=== PATIENT | female | born 1930 | race Caucasian/White ===

== ENCOUNTER 2019-02-04 15:21 | Inpatient (IN) | payer OTHER ==
[2019-02-04] VITALS (9 sets, daily range): BP systolic 103–152; BP diastolic 35–56; PULSE 73–83; RESP 14–20; Ht 137.2 cm; Wt 44.2 kg
[~2019-02-04] VITALS: Ht 137.2 cm; Wt 44.2 kg
[~2019-02-04 15:21] MED LIST: ATOR40TA68 PO; CLOP75TA28 GTB; ENOX30DI2 SC; METO-448 GTB; [UNRECOGNIZED DRUG - CODE] PO
[2019-02-04] MEDS ORDERED: NACL 0.9% 3 ML SYG IV SCH (16:30)
[2019-02-04] MEDS ORDERED: morphine 2 MG INJ IV PRN (16:30)
[2019-02-04] MEDS ORDERED: DOCUSATE SODIUM 100 MG CAP PO PRN (16:30)
[2019-02-04] MEDS ORDERED: ONDANSETRON 4 MG INJ IV PRN (16:30)
[2019-02-04] MEDS ORDERED: ACETAMINOPHEN 650 MG SUPP PR PRN (16:30)
[2019-02-04] MEDS ORDERED: BISACODYL (EC) 5 MG TAB PO PRN (16:30)
[2019-02-04] MEDS ORDERED: ACETAMINOPHEN 325 MG TAB PO PRN (16:30)
[2019-02-04] MEDS ORDERED: HYDROCODONE/APAP (5/325) TAB PO PRN (16:30)
[2019-02-04] MEDS ORDERED: DOCUSATE SODIUM 10 MG/ML (10ML CUP) GTB PRN (17:30)
[2019-02-04] MEDS ORDERED: NACL 3% 500 ML IV SCH (17:30)
[2019-02-04] MEDS ORDERED: LABETALOL HCL 20MG INJ IV PRN (18:30)
[2019-02-04] MEDS ORDERED: MAGNESIUM SULFATE 2 GM/50 ML 50 ML IVPB ONE (18:30)
[2019-02-04] MEDS ORDERED: FAMOTIDINE 20 MG TAB PO SCH (21:00)
[2019-02-04] MEDS ORDERED: ACETAMINOPHEN 325 MG TAB PEG PRN (22:30)
[2019-02-04] MEDS ORDERED: SOD CHLORIDE 0.9% 1,000 ML IV SCH (23:00)
[2019-02-04] MEDS: FAMOTIDINE 20 MG TAB PEG SCH (23:03)
[2019-02-05] VITALS (25 sets, daily range): BP systolic 91–143; BP diastolic 29–61; PULSE 65–77; RESP 12–44
[2019-02-05] MEDS ORDERED: ENOXAPARIN 30 MG/0.3 ML SYG SC SCH (09:00)
[2019-02-05] MEDS: SOD CHLORIDE 0.9% 1,000 ML IV SCH (19:08)
[2019-02-05] MEDS: FAMOTIDINE 20 MG TAB PEG SCH (20:52)
[2019-02-05] MEDS: HYDROCODONE/APAP (5/325) TAB PEG PRN (22:54)
[2019-02-06] VITALS (31 sets, daily range): BP systolic 93–182; BP diastolic 39–84; PULSE 62–91; RESP 13–24
[2019-02-06] MEDS ORDERED: POTASSIUM CHLORIDE 20 MEQ POWDER FOR ORAL SOLN GTB ONE (07:00)
[2019-02-06] MEDS ORDERED: MAGNESIUM SULFATE 1 GM/D5W 100 ML IVPB ONE (07:00)
[2019-02-06] MEDS: SOD CHLORIDE 0.9% 1,000 ML IV SCH ×2 (09:32→21:11)
[2019-02-06] MEDS: ENOXAPARIN 30 MG/0.3 ML SYG SC SCH (09:32)
[2019-02-06] MEDS ORDERED: METOPROLOL 25 MG TAB GTB SCH (17:30)
[2019-02-06] MEDS ORDERED: HYDROCORTISONE 25 MG SUPP PR PRN (17:30)
[2019-02-06] MEDS: FAMOTIDINE 20 MG TAB PEG SCH (21:10)
[2019-02-06] MEDS: METOPROLOL 25 MG TAB GTB SCH (21:11)
[2019-02-07] VITALS (23 sets, daily range): BP systolic 103–163; BP diastolic 43–68; PULSE 58–71; RESP 12–23
[2019-02-07] MEDS: METOPROLOL 25 MG TAB GTB SCH ×2 (08:28→21:00)
[2019-02-07] MEDS: LACTOBACILLUS RHAMNOSUS CAP GTB SCH ×2 (08:28→21:19)
[2019-02-07] MEDS: ENOXAPARIN 30 MG/0.3 ML SYG SC SCH (08:29)
[2019-02-07] MEDS: FAMOTIDINE 20 MG TAB PEG SCH (21:19)
[2019-02-08] VITALS (23 sets, daily range): BP systolic 113–159; BP diastolic 45–82; PULSE 58–76; RESP 14–22
[2019-02-08] MEDS: LACTOBACILLUS RHAMNOSUS CAP GTB SCH ×2 (08:04→20:25)
[2019-02-08] MEDS: METOPROLOL 25 MG TAB GTB SCH ×2 (08:04→20:25)
[2019-02-08] MEDS: CLOPIDOGREL 75 MG TAB GTB SCH (08:04)
[2019-02-08] MEDS: ENOXAPARIN 30 MG/0.3 ML SYG SC SCH (08:05)
[2019-02-08] MEDS: SODIUM CHLORIDE 1 GM TAB PO SCH ×3 (08:11→20:26)
[2019-02-08] MEDS: FAMOTIDINE 20 MG TAB PEG SCH (20:26)
[2019-02-09] VITALS: BP 121/57; PULSE 69; RESP 17
[2019-02-09 04:00] VITALS: BP 114/56; PULSE 66; RESP 20
[2019-02-09 07:11] VITALS: BP 110/55; PULSE 72; RESP 17
[2019-02-09] MEDS ORDERED: MAGNESIUM SULFATE 2 GM/50 ML 50 ML IVPB ONE (08:30)
[2019-02-09] MEDS: METOPROLOL 25 MG TAB GTB SCH ×2 (08:56→20:12)
[2019-02-09] MEDS: CLOPIDOGREL 75 MG TAB GTB SCH (08:56)
[2019-02-09] MEDS: SODIUM CHLORIDE 1 GM TAB PO SCH ×3 (08:56→20:13)
[2019-02-09] MEDS: LACTOBACILLUS RHAMNOSUS CAP GTB SCH ×2 (08:56→20:11)
[2019-02-09] MEDS: DEMECLOCYCLINE 150 MG TAB GTB SCH ×2 (09:02→20:13)
[2019-02-09] MEDS: ENOXAPARIN 30 MG/0.3 ML SYG SC SCH (09:23)
[2019-02-09 11:03] VITALS: BP 115/57; PULSE 65; RESP 17
[2019-02-09 15:43] VITALS: BP 113/59; PULSE 63; RESP 17
[2019-02-09 19:12] VITALS: BP 124/60; PULSE 67; RESP 18
[2019-02-09] MEDS: HYDROCODONE/APAP (5/325) TAB PEG PRN (20:12)
[2019-02-09] MEDS: FAMOTIDINE 20 MG TAB PEG SCH (20:13)
[2019-02-09] MEDS: BALSAM PERU/CASTOR OIL 60 GM TUBE TOP SCH (20:13)
[2019-02-10 00:23] VITALS: BP 121/57; PULSE 64; RESP 18
[2019-02-10 07:13] VITALS: BP 122/69; PULSE 67; RESP 18
[2019-02-10] MEDS: DEMECLOCYCLINE 150 MG TAB GTB SCH ×2 (08:04→20:11)
[2019-02-10] MEDS: METOPROLOL 25 MG TAB GTB SCH ×2 (08:04→20:11)
[2019-02-10] MEDS: BALSAM PERU/CASTOR OIL 60 GM TUBE TOP SCH (08:05)
[2019-02-10] MEDS: LACTOBACILLUS RHAMNOSUS CAP GTB SCH ×2 (08:05→20:10)
[2019-02-10] MEDS: SODIUM CHLORIDE 1 GM TAB PO SCH ×3 (08:05→20:10)
[2019-02-10] MEDS: CLOPIDOGREL 75 MG TAB GTB SCH (08:05)
[2019-02-10] MEDS: ENOXAPARIN 30 MG/0.3 ML SYG SC SCH (08:12)
[2019-02-10 12:00] VITALS: BP 104/50; PULSE 62; RESP 18
[2019-02-10 15:05] VITALS: BP 115/57; PULSE 64; RESP 20
[2019-02-10 19:55] VITALS: BP 104/50; PULSE 67; RESP 18
[2019-02-10] MEDS: FAMOTIDINE 20 MG TAB PEG SCH (20:11)
[2019-02-10 22:57] VITALS: BP 122/59; PULSE 63; RESP 18
[2019-02-11 04:27] VITALS: BP 163/71; PULSE 70; RESP 18
[2019-02-11 07:28] VITALS: BP 133/62; PULSE 68; RESP 17
[2019-02-11] MEDS: LACTOBACILLUS RHAMNOSUS CAP GTB SCH (07:46)
[2019-02-11] MEDS: METOPROLOL 25 MG TAB GTB SCH (07:46)
[2019-02-11] MEDS: DEMECLOCYCLINE 150 MG TAB GTB SCH (07:46)
[2019-02-11] MEDS: SODIUM CHLORIDE 1 GM TAB PO SCH ×2 (07:46→13:28)
[2019-02-11] MEDS: CLOPIDOGREL 75 MG TAB GTB SCH (07:46)
[2019-02-11] MEDS: BALSAM PERU/CASTOR OIL 60 GM TUBE TOP SCH (07:47)
[2019-02-11] MEDS: ENOXAPARIN 30 MG/0.3 ML SYG SC SCH (07:54)
[2019-02-11] MEDS ORDERED: MAGNESIUM SULFATE 2 GM/50 ML 50 ML IVPB ONE (08:00)
[2019-02-11 11:42] VITALS: BP 119/63; PULSE 88; RESP 17
[2019-02-11 17:08] VITALS: BP 124/63; PULSE 78; RESP 17
[2019-02-11 18:54] VITALS: BP 120/58; PULSE 63; RESP 18
== END 2019-02-11 23:15 | DRG 643 ==
LOC: ICU 15:26 → 6WM 02-08 22:12
PROVIDERS: ADMIT Internal Medicine; ATTEND Internal Medicine
DX: E22.2 Syndrome of inappropriate secretion of antidiuretic hormone (principal); G92 Toxic encephalopathy; E46 Unspecified protein-calorie malnutrition; E87.1 Hypo-osmolality and hyponatremia; R13.10 Dysphagia, unspecified; F01.50 Vascular dementia, unspecified severity, without behavioral disturbance, psychotic disturbance, mood disturbance, and anxiety; N18.9 Chronic kidney disease, unspecified; Z68.23 Body mass index [BMI] 23.0-23.9, adult; R33.9 Retention of urine, unspecified
CPT/HCPCS: 80048; 80053; 80061; 81001; 81003; 82043; 82270; 82533; 83036; 83735; 83930; 83935; 84100; 84155; 84295; 84300; 84443; 84560; 85025; 85610; 86704; 86709; 86803; 87340; 92507; 92523; 92526; 92610; 93005; 93306; 93880; 93922; 97163; J1650; J3475; J7030